=== PATIENT | female | born 1990 | race Caucasian/White ===

== ENCOUNTER 2016-10-14 20:18 | Emergency (ER) | payer SELFPAY ==
[~2016-10-14] VITALS: Ht 177.8 cm; Wt 49.9 kg
[~2016-10-14 20:18] MED LIST: CLON0.1T; CLON2TAB4; NITR100C11; NORE1PAT7
[2016-10-14 20:49] LABS: BASOPHILS % (AUTO) 0.3 % (0.0-2.0); DIFF TOTAL % 100 %; EOSINOPHILS # (AUTO) 0.2 /CMM (0.0-0.7); EOSINOPHILS % (AUTO) 2.7 % (0.0-6.0); HEMATOCRIT 35 % (33-45); HEMOGLOBIN 11.5 g/dL (11.5-14.8); LYMPHOCYTES # (AUTO) 2.8 /CMM (0.8-4.8); LYMPHOCYTES % (AUTO) 32.5 % (20.0-44.0); MEAN CORPUSCULAR HEMOGLOBIN 26 PG (26.0-33.0); MEAN CORPUSCULAR HGB CONC 33 g/dl (31.0-36.0); MEAN CORPUSCULAR VOLUME 79 fL (82-100); MONOCYTES # (AUTO) 0.3 /CMM (0.1-1.30); MONOCYTES % (AUTO) 3.7 % (2.0-12.0); NEUTROPHILS # (AUTO) 5.2 /CMM (1.8-8.9); NEUTROPHILS % (AUTO) 60.8 % (43.0-81.0); PLATELET COUNT (AUTO) 361 /CMM (150-450); RED BLOOD CELL COUNT(AUTO) 4.44 MIL/uL (4.0-5.2); WHITE BLOOD COUNT (AUTO) 8.5 K/uL (4.3-11.0)
[2016-10-14 20:56] LABS: CALCIUM, SERUM 8.6 mg/dL (8.5-10.1); CREATININE 0.8 mg/dL (0.6-1.3); POTASSIUM 3.8 mmol/L (3.5-5.1)
[2016-10-14] MEDS ORDERED: IV NS 0.9% 1,000 ML BAG IV ONE (21:00)
[2016-10-14] MEDS ORDERED: IV NS 0.9% 1,000 ML ONE (21:03)
[2016-10-14] MEDS ORDERED: IV SET PRIMARY 1 EA INFUS.SET MC ONE (21:03)
[2016-10-14 22:20] VITALS: BP 124/76
== END 2016-10-14 22:31 | disposition home or self-care (01) ==
LOC: ER 20:20
DX: R55 Syncope and collapse (principal); R91.1 Solitary pulmonary nodule; F19.90 Other psychoactive substance use, unspecified, uncomplicated; F41.9 Anxiety disorder, unspecified; F17.200 Nicotine dependence, unspecified, uncomplicated; F11.10 Opioid abuse, uncomplicated
CPT/HCPCS: 36415; 71010; 80048; 84703; 85025; 93005; 96360; 99285; A4606; J7030; Z7610

== ENCOUNTER → 2018-05-13 | Emergency (ER) | payer SELFPAY ==
[~2018-05-13] VITALS: Ht 177.8 cm; Wt 60.8 kg
[~2018-05-13] MED LIST changes: +ACETAMINOPHEN 325 MG TABLET ONE; +CLON2TAB11; -CLON2TAB4
[2018-05-13 17:33] VITALS: BP 117/88
--- NOTE | 2018-05-13 17:35 | NUR ---
BIBRA C/O OVERDOSE WITH HEROIN, PATIENT RECEIVED AWAKE AND ALERT. NOT IN DISTRESS. SKIN IS WARM TO TOUCH AND NON DIAPHORETIC. PATIENT IS AFEBRILE. VSS. [id number] IN THE FIELD
[2018-05-13] MEDS: ACETAMINOPHEN 325 MG TABLET PO ONE (18:39)
--- NOTE | 2018-05-13 18:55 | NUR ---
Patient discharged to home in stable condition. Written and verbal after care instructions given. Patient verbalizes understanding of instruction. Patient ambulates with stable gait.
== END | disposition home or self-care (01) ==
LOC: ER 17:35
DX: T40.1X1A Poisoning by heroin, accidental (unintentional), initial encounter (principal); F41.9 Anxiety disorder, unspecified; F17.200 Nicotine dependence, unspecified, uncomplicated; Y92.89 Other specified places as the place of occurrence of the external cause
CPT/HCPCS: A4606; Z7610